=== PATIENT | female | born 1965 ===

== ENCOUNTER 2017-12-29 12:45 | Emergency (ER) | payer MEDICAID, OTHER ==
[2017-12-29 12:52] VITALS: BMI 29.2
[2017-12-29 12:54] VITALS: BP 116/84; PULSE 82; RESP 16; TEMP 98.2; O2SAT 95
[2017-12-29 14:06] LABS: HCG,QUALITATIVE URINE NEGATIVE (NEGATIVE)
[2017-12-29 14:09] LABS: URINE BILIRUBIN NEGATIVE (NEGATIVE); URINE BLOOD NEGATIVE (NEGATIVE); URINE CLARITY Clear (Clear); URINE COLOR Yellow (YELLOW); URINE GLUCOSE (UA) NORMAL (Normal); URINE LEUKOCYTE ESTERASE TRACE Leu/uL (Negative); URINE PROTEIN NEGATIVE (NEGATIVE); URINE UROBILINOGEN NORMAL mg/dL (0.2-1.0)
--- NOTE | 2017-12-29 14:20 | C.PDOC ---
History Of Present Illness 52 year old female presents to the ED for evaluation of malaise and generalized body aches which began 5 days ago. She reports many sick contacts at home who have been experiencing similar symptoms. Patient had one episode of vomiting this morning. She reports history of Gastritis, but states she does not take any antacid medication at home. She denies fever, chills. Time Seen by Provider: 12/29/17 13:15 Chief Complaint (Nursing): Abdominal Pain History Per: Patient History/Exam Limitations: no limitations Onset/Duration Of Symptoms: Days (5) Current Symptoms Are (Timing): Still Present Radiation Of Pain To:: None Quality Of Discomfort: Aching Associated Symptoms: Vomiting. denies: Fever, Chills Additional History Per: Patient Past Medical History Reviewed: Historical Data, Nursing Documentation, Vital Signs Vital Signs: Last Vital Signs Temp 98.2 F 12/29/17 12:52 Pulse 82 12/29/17 12:52 Resp 16 12/29/17 12:52 BP 116/84 12/29/17 12:52 Pulse Ox 95 12/29/17 14:38 - Medical History PMH: No Chronic Diseases, Gastritis Denies: Fractures, Chronic Kidney Disease Surgical History: No Surg Hx - [facility] Procedures INJECT/INFUSE NEC (06/06/14) Family History: States: Unknown Family Hx - Social History Hx Tobacco Use: No (quit) Hx Alcohol Use: No Hx Substance Use: No - Immunization History Hx Tetanus Toxoid Vaccination: No Hx Influenza Vaccination: No Hx Pneumococcal Vaccination: No Review Of Systems Constitutional: Positive for: Malaise. Negative for: Fever, Chills Gastrointestinal: Positive for: Vomiting Musculoskeletal: Positive for: Other (generalized body aches ) Physical Exam - Physical Exam Appears: Non-toxic, No Acute Distress, Other ( female ) Skin: Normal Color, Warm, Dry Head: Atraumatic, Normacephalic Eye(s): bilateral: Normal Inspection Oral Mucosa: Moist Neck: Supple Chest: Symmetrical, No Deformity, No Tenderness Cardiovascular: Rhythm Regular, No Murmur Respiratory: Normal Breath Sounds, No Rales, No Rhonchi, No Wheezing Gastrointestinal/Abdominal: Soft, No Tenderness, No Guarding, No Rebound, Other (obese. negative Shipman's sign and McBurney's point tenderness ) Extremity: Normal ROM, Capillary Refill (less than 2 seconds ) Neurological/Psych: Oriented x3, Normal Speech, Normal Cognition ED Course And Treatment - Laboratory Results Lab Interpretation: Normal (UA neg.) Urine POC: Negative O2 Sat by Pulse Oximetry: 95 (on RA) Pulse Ox Interpretation: Normal Progress Note: Urinalysis ordered and reviewed. Motrin PO, Pepcid PO, and Zofran PO given. Reevaluation Time: 14:19 Reassessment Condition: Improved Medical Decision Making Medical Decision Making: viral syndrome- many sick contacts @ home with same. baseline gastritis benign exam improved with PO tx. Disposition Doctor Will See Patient In The: Office Counseled Patient/Family Regarding: Studies Performed, Diagnosis - Disposition Referrals: Jane Mcclure MD [Medical Doctor] - Disposition: HOME/ ROUTINE Disposition Time: 14:19 Condition: GOOD Additional Instructions: dieta blanda por 2 silvestre Sigue Pepcid 20 mg en la noche (por lo menos sigue por un mes) para bajar el acides del estomago Sigue con [facility]kinson [facility] Prescriptions: Famotidine [Pepcid] 20 mg PO HS #30 tab Instructions: Gastritis, Nausea and Vomiting, Adult (DC) Forms: [employer] (Eritrean) Print Language: GERMAN - Clinical Impression Clinical Impression: Viral syndrome, Vomiting - Scribe Statement The provider has reviewed the documentation as recorded by the Scribe (Edie Patton) Provider Attestation: All medical record entries made by the Scribe were at my direction and personally dictated by me. I have reviewed the chart and agree that the record accurately reflects my personal performance of the history, physical exam, medical decision making, and the department course for this patient. I have also personally directed, reviewed, and agree with the discharge instructions and disposition.
--- NOTE | 2017-12-29 14:28 | C.PDOC ---
History Of Present Illness 52 year old female presents to the ED for evaluation of malaise and generalized body aches which began 5 days ago. She reports many sick contacts at home who have been experiencing similar symptoms. Patient had one episode of vomiting this morning. She reports history of Gastritis, but states she does not take any antacid medication at home. She denies fever, chills. Time Seen by Provider: 12/29/17 13:15 Chief Complaint (Nursing): Abdominal Pain History Per: Patient History/Exam Limitations: no limitations Onset/Duration Of Symptoms: Days (5) Current Symptoms Are (Timing): Still Present Quality Of Discomfort: Aching Associated Symptoms: Vomiting. denies: Fever, Chills Additional History Per: Patient Abnormal Vaginal Bleeding: No Past Medical History Reviewed: Historical Data, Nursing Documentation, Vital Signs Vital Signs: Last Vital Signs Temp 98.2 F 12/29/17 12:52 Pulse 82 12/29/17 12:52 Resp 16 12/29/17 12:52 BP 116/84 12/29/17 12:52 Pulse Ox 95 12/29/17 12:52 - Medical History PMH: Gastritis Denies: Fractures, Chronic Kidney Disease Surgical History: No Surg Hx - [facility] Procedures INJECT/INFUSE NEC (06/06/14) Family History: States: Unknown Family Hx - Social History Hx Tobacco Use: No (quit) Hx Alcohol Use: No Hx Substance Use: No - Immunization History Hx Tetanus Toxoid Vaccination: No Hx Influenza Vaccination: No Hx Pneumococcal Vaccination: No Review Of Systems Constitutional: Positive for: Malaise. Negative for: Fever, Chills Gastrointestinal: Positive for: Vomiting Musculoskeletal: Positive for: Other (generalized body aches ) Physical Exam - Physical Exam Appears: Non-toxic, No Acute Distress, Other ( female ) Skin: Normal Color, Warm, Dry Head: Atraumatic, Normacephalic Eye(s): bilateral: Normal Inspection Oral Mucosa: Moist Neck: Supple Chest: Symmetrical, No Deformity, No Tenderness Cardiovascular: Rhythm Regular, No Murmur Respiratory: Normal Breath Sounds, No Rales, No Rhonchi, No Wheezing Gastrointestinal/Abdominal: Soft, No Tenderness, No Guarding, No Rebound, Other (obese. negative Shipman's sign and McBurney's point tenderness ) Extremity: Normal ROM, Capillary Refill (less than 2 seconds ) Neurological/Psych: Oriented x3, Normal Speech, Normal Cognition ED Course And Treatment O2 Sat by Pulse Oximetry: 95 (on RA) Pulse Ox Interpretation: Normal Progress Note: Urinalysis ordered and reviewed. Motrin PO, Pepcid PO, and Zofran PO given. Disposition - Disposition Forms: [employer] (Romansh) - Scribe Statement The provider has reviewed the documentation as recorded by the Scribe (Edie Patton) Provider Attestation: All medical record entries made by the Scribe were at my direction and personally dictated by me. I have reviewed the chart and agree that the record accurately reflects my personal performance of the history, physical exam, medical decision making, and the department course for this patient. I have also personally directed, reviewed, and agree with the discharge instructions and disposition.
== END 2017-12-29 14:51 | disposition home or self-care (01) ==
LOC: C.ER 12:45
DX: B34.9 Viral infection, unspecified (principal); R11.10 Vomiting, unspecified

== ENCOUNTER 2018-10-31 04:19 | Emergency (ER) | payer MEDICAID, OTHER ==
[2018-10-31 04:19] VITALS: BMI 29.2
--- NOTE | 2018-10-31 04:39 | C.PDOC ---
History Of Present Illness 52 y/o female presents to ED complaining of abdominal pain after having a couple of drinks tonight. Denies fever, chills, nausea, or vomiting. Patient speaking in complete sentences. Time Seen by Provider: 10/31/18 04:39 Chief Complaint (Nursing): Abdominal Pain History Per: Patient History/Exam Limitations: no limitations Onset/Duration Of Symptoms: Hrs Current Symptoms Are (Timing): Still Present Context: Other (alcohol) Severity: Moderate Pain Scale Rating Of: 4 Location Of Pain/Discomfort: Epigastric Radiation Of Pain To:: None Quality Of Discomfort: "Pain" Associated Symptoms: denies: Fever, Chills, Nausea, Vomiting Exacerbating Factors: None Alleviating Factors: None Last Bowel Movement: Today Recent travel outside of the [place]: No Abnormal Vaginal Bleeding: No Past Medical History Reviewed: Historical Data, Nursing Documentation, Vital Signs Vital Signs: Last Vital Signs Temp 98.0 F 10/31/18 04:23 Pulse 90 10/31/18 04:23 Resp 20 10/31/18 04:23 BP 124/80 10/31/18 04:23 Pulse Ox 100 10/31/18 04:23 Primary Care Provider: Corry Mcclure - Medical History PMH: Gastritis Denies: Fractures, Chronic Kidney Disease - [facility] Procedures INJECT/INFUSE NEC (06/06/14) Family History: States: No Known Family Hx - Social History Hx Tobacco Use: No (quit) Hx Alcohol Use: No Hx Substance Use: No - Immunization History Hx Tetanus Toxoid Vaccination: No Hx Influenza Vaccination: No Hx Pneumococcal Vaccination: No Review Of Systems Constitutional: Negative for: Fever, Chills Cardiovascular: Negative for: Chest Pain, Palpitations Respiratory: Negative for: Cough, Shortness of Breath Gastrointestinal: Positive for: Abdominal Pain. Negative for: Nausea, Vomiting, Diarrhea Neurological: Negative for: Weakness, Numbness Physical Exam - Physical Exam Appears: Non-toxic, No Acute Distress Skin: Warm, Dry Head: Normacephalic Eye(s): bilateral: Normal Inspection Oral Mucosa: Moist Neck: Supple Cardiovascular: Rhythm Regular Respiratory: No Rales, No Rhonchi, No Wheezing Gastrointestinal/Abdominal: Soft, Tenderness (epigastric), No Distention, No Guarding, No Rebound Back: No CVA Tenderness Extremity: Bilateral: Normal Color And Temperature Neurological/Psych: Oriented x3 ED Course And Treatment - Laboratory Results Result Diagrams: 10/31/18 05:08 10/31/18 05:08 O2 Sat by Pulse Oximetry: 100 (RA) Pulse Ox Interpretation: Normal Progress Note: Plan: Labs, UA, IV fluids, zofran. Reevaluation Time: 06:15 Reassessment Condition: Improved Medical Decision Making Medical Decision Making: Upon provider reevaluation patient is feeling better, is medically stable, and requires no further treatment in the ED at this time. Patient will be discharged home with Rx for zofran, protonix . Counseling was provided and all questions were answered regarding diagnosis and need for follow up withdr melgar. There is agreement to discharge plan. Return if symptoms persist or worsen. Disposition Counseled Patient/Family Regarding: Studies Performed, Diagnosis, Need For Followup, Rx Given - Disposition Referrals: Corry Mcclure MD [Staff Provider] - Disposition: HOME/ ROUTINE Disposition Time: 04:39 Condition: SERIOUS Additional Instructions: Please return if symptoms recur Prescriptions: Ondansetron ODT [Zofran ODT] 1 odt PO BID PRN #6 odt PRN Reason: Nausea/Vomiting Pantoprazole Sodium [Protonix] 40 mg PO DAILY #14 ect Instructions: Gastritis (DC) Forms: [employer] (Citizen Of [place]) - Clinical Impression Clinical Impression: Gastritis, Alcohol intoxication - Scribe Statement The provider has reviewed the documentation as recorded by the Jordyn Hatch Provider Attestation: All medical record entries made by the Waqasibmagy were at my direction and personally dictated by me. I have reviewed the chart and agree that the record accurately reflects my personal performance of the history, physical exam, medical decision making, and the department course for this patient. I have also personally directed, reviewed, and agree with the discharge instructions and disposition.
[2018-10-31] MEDS ORDERED: Sodium Chloride 0.9% 1,000 ML IV ONE (04:58)
[2018-10-31] MEDS ORDERED: Sodium Chloride 0.9% 1,000 ML ONE (05:10)
[2018-10-31 05:12] LABS: BASO % 0.5 % (0.0-2.0); EOS % 0.6 % (0.0-4.0); HEMOGLOBIN 12.8 g/dL (11.0-16.0); LYMPH # 1.2 K/uL (1.0-4.3); LYMPH % 29.5 % (20.0-40.0); MEAN CELL VOLUME 94.7 fL (81.0-99.0); MEAN CORPUSCULAR HGB CONC 32.7 g/dL (33.0-37.0); MEAN PLATELET VOLUME 7.9 fL (7.2-11.7); MONO # 0.3 K/uL (0.0-0.8); MONO % 6.6 % (0.0-10.0); NEUT # 2.5 K/uL (1.8-7.0); NEUT % 62.8 % (50.0-75.0); NRBC % 0.1 % (0.0-2.0); RBC 4.15 Mil/uL (3.80-5.20); RED CELL DISTRIBUTION WIDTH 12.7 % (11.5-14.5)
[2018-10-31 05:29] LABS: ALB/GLOB RATIO 1.4 (1.0-2.1); ALBUMIN 4.4 g/dL (3.5-5.0); ALT/SGPT 23 U/L (9-52); AST/SGOT 33 U/L (14-36); BLOOD UREA NITROGEN 9 mg/dL (7-17); CALCIUM 9.1 mg/dl (8.6-10.4); GFR NON-AFRICAN AMERICAN > 60; LIPASE 140 U/L (23-300)
[2018-10-31 06:12] VITALS: BP 113/78; PULSE 84; RESP 18; TEMP 97.6
[2018-10-31 06:18] VITALS: O2SAT 100
== END 2018-10-31 06:27 | disposition home or self-care (01) ==
LOC: C.ER 04:19
DX: K29.70 Gastritis, unspecified, without bleeding (principal); F10.129 Alcohol abuse with intoxication, unspecified; Y90.6 Blood alcohol level of 120-199 mg/100 ml
CPT/HCPCS: 80053; 80320; 83690; 85025; 96361; 96374; 96375; 99284; C9113; J2405; J7030